=== PATIENT | female | born 1980 | race Caucasian/White ===

== ENCOUNTER 2023-04-19 14:27 | Emergency (ER) | payer SELFPAY ==
[~2023-04-19] VITALS: Ht 152.4 cm; Wt 78.9 kg
[2023-04-19 14:43] VITALS: BP 121/89; PULSE 81; RESP 16; TEMP 98.1; O2SAT 98
[2023-04-19 16:23] LABS: APPEARANCE,URINE CLEAR (CLEAR); BILIRUBIN,URINE 1+ (NEGATIVE); BLOOD, URINE 1+ (NEGATIVE); COLOR,URINE YELLOW (YELLOW); LEUKOCYTE ESTERASE ,URINE NEGATIVE (NEGATIVE); NITRITE, URINE NEGATIVE (NEGATIVE); PROTEIN,URINE TRACE (NEGATIVE); UGLUCOSE NEGATIVE (NEGATIVE); UROBILINOGEN,URINE 0.2 EU/dL (0.2 - 1)
[2023-04-19 16:40] LABS: BACTERIA,URINE 3+ /HPF (None Seen); ICTOTEST NEGATIVE (NEGATIVE); RBC,URINE 0-5 /HPF (0-5); WBC,URINE 0-5 /HPF (0-5)
[2023-04-19 16:41] LABS: MUCUS,URINE 1+ /LPF (None Seen); SQUAMOUS EPITHELIAL CELL,UR 20-50 /LPF (0-3 (FEW)); TRICHOMONAS,URINE None Seen /HPF (None Seen); YEAST,URINE None Seen /HPF (None Seen)
[2023-04-19 16:46] VITALS: BP 121/89; PULSE 81; RESP 16; TEMP 98.1; O2SAT 98
== END 2023-04-19 16:46 | disposition home or self-care (01) ==
LOC: MED 14:27
DX: N95.2 Postmenopausal atrophic vaginitis (principal); Z79.899 Other long term (current) drug therapy
CPT/HCPCS: 81001; 87086; 87491; 99283